=== PATIENT | male | born 1960 ===

== ENCOUNTER 2016-11-11 07:53 | Observation (INO) | payer OTHER ==
[2016-11-11 07:53] VITALS: BMI 27.4
[2016-11-11 08:01] VITALS: RESP 18; TEMP 98.5; O2SAT 99
[2016-11-11] MEDS ORDERED: Sodium Chloride 0.9% 1,000 ML IV STA (08:15)
[2016-11-11] MEDS ORDERED: Iohexol 240 (50 ml) PO ONE (08:15)
--- NOTE | 2016-11-11 08:22 | ED PDOC ---
HPI: Abdomen Time Seen by Provider: 11/11/16 07:55 Chief Complaint (Nursing): Abdominal Pain Chief Complaint (Provider): Abdominal Pain History Per: Patient History/Exam Limitations: no limitations Onset/Duration Of Symptoms: Days Current Symptoms Are (Timing): Still Present Severity: Moderate Location Of Pain/Discomfort: LLQ Quality Of Discomfort: "Pain" Associated Symptoms: denies: Fever, Chills, Nausea, Vomiting, Diarrhea, Urinary Symptoms Exacerbating Factors: None Alleviating Factors: None Additional Complaint(s): Patient is a 56 year old male who presents to ED for evaluation of abdominal pain for 4 days. Patient notes similar pain intermittently over 2 years but normally spontaneous resolved. Notes pain is to LLQ with left testicular pain. Denies penile lesions or discharge. Denies nausea, vomiting, diarrhea, back pain or urinary changes. Past Medical History Reviewed: Historical Data, Nursing Documentation, Vital Signs Vital Signs: Last Vital Signs Temp 98.5 F 11/11/16 08:00 Pulse 72 11/11/16 08:00 Resp 18 11/11/16 08:00 BP 157/103 H 11/11/16 08:00 Pulse Ox 99 11/11/16 08:29 - Medical History PMH: HTN Denies: Chronic Kidney Disease - Surgical History Surgical History: No Surg Hx - Family History Family History: States: Unknown Family Hx - Living Arrangements Living Arrangements: With Family - Home Medications Home Medications: Ambulatory Orders Medication Instructions Recorded Oseltamivir [Tamiflu] 75 mg PO BID #10 cap 08/14/16 - Allergies Allergies/Adverse Reactions: Allergies Allergy/AdvReac Type Severity Reaction Status Date / Time No Known Allergies Allergy Verified 11/11/16 08:05 Review of Systems ROS Statement: Except As Marked, All Systems Reviewed And Found Negative Constitutional: Negative for: Fever, Chills Gastrointestinal: Positive for: Abdominal Pain. Negative for: Nausea, Vomiting , Diarrhea Genitourinary Male: Positive for: Scrotal Pain. Negative for: Dysuria, Frequency, Penile Discharge Musculoskeletal: Negative for: Back Pain Skin: Negative for: Rash Neurological: Negative for: Weakness, Numbness Physical Exam - Reviewed Nursing Documentation Reviewed: Yes Vital Signs Reviewed: Yes - Physical Exam Appears: Positive for: Non-toxic, No Acute Distress Skin: Positive for: Normal Color, Warm Eye Exam: Positive for: Normal appearance ENT: Positive for: Normal ENT Inspection Neck: Positive for: Normal, Painless ROM Cardiovascular/Chest: Positive for: Regular Rate, Rhythm. Negative for: Murmur Respiratory: Positive for: Normal Breath Sounds. Negative for: Respiratory Distress Gastrointestinal/Abdominal: Positive for: Soft, Tenderness (LLQ). Negative for : Distended, Guarding, Rebound Male Genital Exam: Positive for: normal genitalia (normal cremasteric reflex), testicular tenderness (L). Negative for: erythema, lesions, testicular tenderness (R) Back: Positive for: Normal Inspection. Negative for: L CVA Tenderness, R CVA Tenderness Extremity: Positive for: Normal ROM Neurologic/Psych: Positive for: Alert, Oriented - Laboratory Results Result Diagrams: 11/11/16 08:20 11/11/16 08:20 Interpretation Of Abn Labs: no acute - ECG O2 Sat by Pulse Oximetry: 99 (RA) Pulse Ox Interpretation: Normal - CT Scan/US ct Other Rad Studies (CT/US): Read By Radiologist Other Rad Interpretation: cyst testicle Medical Decision Making Medical Decision Making: Time: 809 Initial impression: Abdominal pain Initial plan: -- CT-abdomen -- CMP -- Urine dip -- CBC -- NSF and Toradol -- Testes Duplex -- ED obs Scribe Attestation: Documented by Kimi Banks acting as a scribe for Robbie Lowe MD MD Scribe Attestation: All medical record entries made by the Scribe were at my direction and personally dictated by me. I have reviewed the chart and agree that the record accurately reflects my personal performance of the history, physical exam, medical decision making, and the department course for this patient. I have also personally directed, reviewed, and agree with the discharge instructions and disposition. ED OBSERVATION Discharge: Yes Date of observation admission: 11/11/16 Time of observation admission: 08:15 - Observation admission statement Patient is being placed in observation because:: Pending further imaging and blood work - Goals of Observation Goals of observation are:: Image results and pain resolution - Progress Note Progress Note: 11/11/16 12:58 Feels better. AAOx3. Pain free. Tolerated PO. FU with pcp. Disposition - Clinical Impression Clinical Impression: Abdominal pain, Testicular cyst - Patient ED Disposition Is Patient to be Admitted: No Counseled Patient/Family Regarding: Studies Performed, Diagnosis, Need For Followup - Disposition Disposition: Routine/Home Disposition Time: 12:59 Condition: STABLE
[2016-11-11 08:40] LABS: BASO % 0.8 % (0.0-2.0); EOS # 0.4 K/uL (0.0-0.7); HEMATOCRIT 45.2 % (35.0-51.0); LYMPH # 2.5 K/uL (1.0-4.3); MEAN CELL VOLUME 92.7 fl (80.0-94.0); MEAN CORPUSCULAR HEMOGLOBIN 30.9 pg (27.0-31.0); MEAN CORPUSCULAR HGB CONC 33.4 g/dL (33.0-37.0); MEAN PLATELET VOLUME 9.4 fl (7.2-11.7); MONO # 0.5 K/uL (0.0-0.8); MONO % 8.9 % (0.0-10.0); NEUT # 2.3 K/uL (1.8-7.0); NEUT % 40.3 % (50.0-75.0); NRBC % 0.2 % (0.0-0.0); RED CELL DISTRIBUTION WIDTH 13.9 % (11.5-14.5); WHITE BLOOD COUNT 5.8 K/uL (4.8-10.8)
[2016-11-11] MEDS ORDERED: Iohexol 240 (50 ml) ONE (08:43)
[2016-11-11 08:53] LABS: ALKALINE PHOSPHATASE 120 U/L (38-126); ALT/SGPT 35 U/L (21-72); AST/SGOT 33 U/L (17-59); BILIRUBIN,TOTAL 0.5 mg/dl (0.2-1.3); BLOOD UREA NITROGEN 16 mg/dl (9-20); CALCIUM 9.5 mg/dL (8.4-10.2); CARBON DIOXIDE 27 mmol/L (22-30); CHLORIDE 104 mmol/L (98-107); GFR AFRICAN-AMERICAN > 60; GLUCOSE,RANDOM 105 mg/dL (75-110); POTASSIUM 4.3 MMOL/L (3.6-5.0); SODIUM 143 mmol/l (132-148); TOTAL PROTEIN 8.6 G/DL (6.3-8.2)
[2016-11-11] MEDS ORDERED: Sodium Chloride 0.9% 50 ML IV ONE (09:37)
[2016-11-11] MEDS ORDERED: Iohexol 300 100 ML IJ ONE (09:37)
--- NOTE | 2016-11-11 10:24 | CT ---
PROCEDURE: CT Abdomen and Pelvis with oral and IV contrast. HISTORY: abd pain COMPARISON: CT of the abdomen and pelvis with contrast performed 02/24/15 TECHNIQUE: Contiguous axial images of the abdomen and pelvis. Oral and IV contrast was administered. Coronal and Sagittal reformats generated and reviewed. Contrast dose: Omnipaque 300 Radiation dose: Total exam DLP = 752.29 mGy-cm. This CT exam was performed using one or more of the following dose reduction techniques: Automated exposure control, adjustment of the mA and/or kV according to patient size, and/or use of iterative reconstruction technique. FINDINGS: LOWER THORAX: 5 mm left lower lobe calcified granuloma. No visible consolidation, pleural effusion, or pneumothorax. Small hiatal hernia. LIVER: Hypoattenuation of the liver compatible with hepatic steatosis. GALLBLADDER AND BILE DUCTS: Unremarkable. PANCREAS: Unremarkable. No mass. No ductal dilatation. SPLEEN: Unremarkable. ADRENALS: Unremarkable. KIDNEYS AND URETERS: The kidneys enhance symmetrically. No hydronephrosis or obstructing renal calculus. BLADDER: The urinary bladder appears unremarkable. REPRODUCTIVE: The prostate gland measures approximately 3.9 x 5.1 cm APPENDIX: The appendix appears within normal limits of caliber. No secondary signs of acute appendicitis. BOWEL: The stomach is nondistended. The bowel loops appear within normal limits of caliber without evidence of intestinal obstruction. Moderate constipation. PERITONEUM: No significant free fluid. No definite free air. LYMPH NODES: No bulky lymphadenopathy identified. VASCULATURE: No aortic aneurysm. BONES: Degenerative changes of the spine. OTHER FINDINGS: None. IMPRESSION: Hepatic steatosis. Moderate constipation. Enlargement of the prostate gland. Recommend correlation with PSA.
--- NOTE | 2016-11-11 10:29 | US ---
HISTORY: testicular pain TECHNIQUE: Realtime sonography through the scrotum with color and doppler flow. COMPARISON: None Available. FINDINGS: RIGHT TESTICLE: Measures 4.6 x 2.1 x 3.3 cm. Homogeneous echotexture. Blood flow is demonstrated. RIGHT EPIDIDYMIS: Epididymal head measures 3.0 x 1.9 x 2.7 cm. Complex anechoic structure either multiple cysts or a large cyst which is complex with septation spanning approximately 2.2 x 1.3 x 2.0 cm. LEFT TESTICLE: Measures 4.5 x 1.9 x 3.2 cm. Homogeneous echotexture. Blood flow is demonstrated. LEFT EPIDIDYMIS: Epididymal head measures 1.1 x 0.8 x 1.2 cm. HYDROCELE: Small bilateral hydroceles. VARICOCELE: None. OTHER FINDINGS: None. IMPRESSION: Complex anechoic structure within the right epididymal head, either multiple cysts or a large cyst which is complex and containing septations spanning a region measuring approximately 2.2 x 1.3 x 2.0 cm. Small bilateral hydroceles.
[2016-11-11 13:29] VITALS: BP 148/90; PULSE 76
== END 2016-11-11 12:59 | disposition home or self-care (01) ==
LOC: H.ER 07:53 → H.EROBSV 08:15
PROVIDERS: ADMIT Emergency Medicine; ATTEND Emergency Medicine
DX: R10.32 Left lower quadrant pain (principal); N44.2 Benign cyst of testis; I10 Essential (primary) hypertension